=== PATIENT | male | born 1930 | race Caucasian/White ===

== ENCOUNTER 2016-10-31 14:57 | Inpatient (IN) | payer SELFPAY ==
[2016-10-31] MEDS: metroNIDAZOLE 500 MG Tab PO SCH (22:51)
[2016-10-31] MEDS: Ciprofloxacin 500 MG Tab PO SCH (22:51)
[2016-11-01] MEDS: metroNIDAZOLE 500 MG Tab PO SCH (05:45)
[2016-11-01] MEDS ORDERED: DEXLANSOPRAZOLE 60 MG PO SCH (08:00)
[2016-11-01] MEDS ORDERED: Valsartan 160 MG Tab PO SCH (08:00)
[2016-11-01] MEDS ORDERED: Olopatadine 0.1% Ophth Soln 5 ML Bottle EYEBOTH SCH ×2 (08:00→08:33)
[2016-11-01] MEDS ORDERED: TRAVOPROST EYEBOTH SCH ×2 (08:00→20:00)
[2016-11-01] MEDS ORDERED: atorvaSTATin 20 MG Tab PO SCH ×3 (08:00)
[2016-11-01] MEDS ORDERED: amLODIPine 5 MG Tab PO SCH (08:00)
[2016-11-01] MEDS ORDERED: Fish Oil/Omega-3 Fatty Acids 1 Gm Cap PO SCH ×2 (08:00→20:00)
[2016-11-01] MEDS ORDERED: Doxycycline 100 MG Cap PO SCH (08:00)
[2016-11-01] MEDS ORDERED: Metoprolol Succinate 25 MG Tab.ER PO SCH (08:00)
[2016-11-01] MEDS: Ciprofloxacin 500 MG Tab PO SCH (09:39)
[2016-11-01] MEDS ORDERED: Levothyroxine 50 MCG Tab PO SCH (09:45)
[2016-11-01] MEDS ORDERED: NATURAL TEARS EYEBOTH PRN (10:44)
[2016-11-01] MEDS ORDERED: guaiFENesin 600 MG Tab.ER PO SCH (10:45)
[2016-11-01 11:29] VITALS: BP 132/72
[2016-11-01] MEDS ORDERED: Albuterol/Ipratropium 3.0-0.5 MG/3 ML Neb Soln INH SCH (12:00)
[2016-11-01] MEDS ORDERED: Gabapentin 100 MG Cap PO SCH (14:00)
[2016-11-01] MEDS ORDERED: Omeprazole 20 MG Cap.CR PO SCH (20:00)
[2016-11-01] MEDS ORDERED: DEXILANT 60 MG PO SCH (20:00)
[2016-11-01] MEDS ORDERED: Sodium Chloride 0.65% Nasal Spray 45 ML Bottle NASBOTH SCH (20:00)
[2016-11-01] MEDS ORDERED: AMANTADINE 100MG CAPSULE PO SCH (20:00)
[2016-11-02] MEDS ORDERED: ATORVASTATIN PO SCH (08:00)
[2016-11-02] MEDS ORDERED: AMLODIPINE PO SCH (08:00)
[2016-11-02] MEDS ORDERED: Fluticasone Propionate Nasal Spray 16 GM Bottle NASBOTH SCH (08:00)
[2016-11-02] MEDS ORDERED: VITAMIN D3 PO SCH (08:00)
[2016-11-02] MEDS ORDERED: Aspirin 81 MG Tab.EC PO SCH (08:00)
[2016-11-02] MEDS ORDERED: Multivitamins with Iron/Calcium/Folic Acid/Minerals Tab PO SCH (08:00)
--- NOTE | 2016-11-03 13:26 | PCM.HP ---
H&P History of Present Illness - General Date of Service: 10/31/16 Admit Problem/Dx: Admission Diagnosis/Problem Admission Diagnosis/Problem Dementia Source of Information: Patient History Limitations: Reports: No limitations - History of Present Illness Initial Comments - Free Text/Narative: Pt is here for respite care for a day before he is going into Care center for admission. 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 He has had recurrent fall attacks all the time. he has had last episode of 10/29/16 in [place] and has a large scalp laceration with sutures on it. does not feel safe to take him home and hence has been admitted to hospital for respite care. No other acute health issues. - Related Data Allergies/Adverse Reactions: Allergies Allergy/AdvReac Type Severity Reaction Status Date / Time morphine Allergy Hallucinati Verified 03/06/15 17:23 ons Home Medications: Home Meds Doxycycline Monohydrate [Doxycycline Monohydrate] 1 tab PO DAILY 03/06/15 [ History] Metoprolol Succinate 25 mg PO DAILY 03/06/15 [History] Olopatadine [Patanol 0.1% Ophth Soln] 2 drop EYEBOTH QID 03/06/15 [History] [id number] Ethyl Esters [Lovaza] 1 tab PO BID 03/06/15 [History] Omeprazole [Omeprazole] 20 mg PO BID 03/06/15 [History] Travoprost [Travatan Z 0.004% Ophth Soln] 1 drop EYEBOTH BEDTIME 03/06/15 [ History] Valsartan [Valsartan] 160 mg PO DAILY 03/06/15 [History] amLODIPine/atorvaSTATin [Amlodipine-Atorvast 5-20 mg] 5 - 20 tab PO DAILY [History] Albuterol [Ventolin HFA] 1 puff INH Q4HR PRN 11/01/16 [History] Amantadine HCl [Amantadine] 100 mg PO BID 11/01/16 [History] Dextran 70/Hypromellose [Artificial Tears] 1 drop EYEBOTH Q2HR PRN 11/01/16 [ History] Fluticasone Propionate [Flovent] 1 puff IH BID 11/01/16 [History] Gabapentin [Neurontin] 200 mg PO TID 11/01/16 [History] Leuprolide Acetate [Lupron Depot] 45 mg IM ASDIRECTED 11/01/16 [History] Levothyroxine Sodium [Levo-T] 50 mcg PO DAILY 11/01/16 [History] Multivitamin [Multi-Vitamin Daily] 1 each PO DAILY 11/01/16 [History] Sodium Chloride [Deep Sea] 1 spray EDWARDO BID 11/01/16 [History] Tolterodine Tartrate 2 mg PO BID 11/01/16 [History] Zolpidem Tartrate [Ambien] 5 mg PO BEDTIME 11/01/16 [History] guaiFENesin [Mucinex] 600 mg PO BID 11/01/16 [History] Past Medical History HEENT History: Reports: Other (see below) Other HEENT History: DIZZINESS FOR SEVERAL YEARS, fx nose with fall Aug 2015, needs reading glasses but can't read anymore, 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 Cardiovascular History: Reports: High cholesterol, Hypertension Respiratory History: Reports: Other (see below) Other Respiratory History: SOB WITH CLIMBIMG STAIRS, 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, quit smoking 40 years ago, had a cough for awhile Gastrointestinal History: Reports: Chronic constipation, Chronic diarrhea, GERD , Other (see below) Other Gastrointestinal History: bowel problems with PSP patient currently has " colitis " and is receiving antibiotics Genitourinary History: Reports: Other (see below) Other Genitourinary History: HISTORY OF ELEVATED PSA, prostate cancer- getting shots at [place] every 6 months, horseshoe shaped kidney Musculoskeletal History: Reports: Fracture Other Musculoskeletal History: fx wrist from tipping over 4-[facility] 2013 Neurological History: Reports: Other (see below) Other Neuro History: Progressive supranuclear palsey (PSP) diagnosed May 2015- causing weakness, balance, vision, word finding per " some days he can't talk" and he has frequent falls last fall 10-27-2016 Psychiatric History: Reports: None Endocrine/Metabolic History: Reports: Other (see below) Other Endocrine/Metabolic History: thyroid problem Hematologic History: Reports: None Immunologic History: Reports: None Oncologic (Cancer) History: Reports: Prostate Dermatologic History: Reports: None - Past Surgical History HEENT Surgical History: Reports: Cataract surgery Cardiovascular Surgical History: Reports: Coronary artery bypass Other Cardiovascular Surgeries/Procedures: Respiratory Surgical History: Reports: None GI Surgical History: Reports: None Neurological Surgical History: Reports: C-Spine, Spinal fusion, Other (see below ) Other Neurological Surgeries/Procedures: C-SPINE FUSION IN S OF 5&6 Musculoskeletal Surgical History: Reports: Other (see below) Other Musculoskeletal Surgeries/Procedures:: C-SPINE FUSION IN OF 5&6 Social & Family History - Family History Family Medical History: Noncontributory - Tobacco Use Smoking Status *Q: Former Smoker Years of Tobacco use: 0 Packs/Tins Daily: 0 Used Tobacco, but Quit: Yes Month Tobacco Last Used: unknown Tobacco Use Comment: patient 's reports pt quit smoking in the "70's" she does not know how long he smoked Second Hand Smoke Exposure: No - Caffeine Use Caffeine Use: Reports: Coffee, Soda Other Caffeine Use: 1 cup daily - Recreational Drug Use Recreational Drug Use: No H&P Review of Systems - Review of Systems: Review Of Systems: Unable To Obtain (due to severe dementia) Exam - Exam Exam: See Below - Vital Signs Vital Signs: Last Vital Signs Temp 97 F 11/01/16 08:00 Pulse 72 11/01/16 11:26 Resp 16 11/01/16 08:00 BP 132/72 11/01/16 11:26 Pulse Ox 96 11/01/16 08:00 Weight: 80.739 kg - Exam General: alert, cooperative HEENT: PERRLA, Conjunctiva clear, EACs clear, EOMI, Hearing intact, Mucosa moist & pink, Nares patent, Normal nasal septum, Posterior pharynx clear, TMs clear, Other (loss of vertical gaze) Neck: supple, trachea midline, 2 Lungs: Clear to auscultation, Normal respiratory effort Cardiovascular: regular rate, regular rhythm Abdomen: normal bowel sounds, soft Back Exam: normal inspection, full range of motion, NT Extremities: normal inspection, other (there are bruises and abrasion in differnet level of healing over the extremities.) Skin: warm, intact, other (There is a sutured laceration over the right parietal region. healing well) Neuro Extensive - Mental Status: alert, oriented x3, disorientation to place, disorientation to time, inattentive Neuro Extensive - Motor, Sensory, Reflexes: abnormal gait *Q Meaningful Use (ADM) - VTE *Q VTE Criteria *Q: - Stroke *Q Stroke Criteria *Q: - AMI *Q AMI Criteria *Q: - Problem List (1) Dementia associated with other underlying disease Status: Acute Problem List Initiated/Reviewed/Updated: Yes Assessment/Plan Comment:: Assessment:Dementia with progressive supranuclear palsy Plan: at this poitn patient has been admitted for respite care for just one day , before getting admitted to the care center. He is clinically stable. is going to stay with him overnight. Will continue home meds. He has had sigmoid colitis for which he has been taking cipro and flagyl for 10 days. Closely monitor patient with fall precautions.
--- NOTE | 2016-11-03 13:37 | PCM.DCSUM1 ---
Discharge Summary - Hospital Course Free Text/Narrative:: Pt was admitted for respite care last night. Has had an uneventful night .Plan is to get him admitted to care center at [facility] today. Brief History: Pt has progressive supranuclear palsy and his has not been able to take care of him. he was admitted for respite care before getting him to care center. - Discharge Data Discharge Date: 11/02/16 Discharge Disposition: DC/Tfer to [facility] Condition: Fair - Discharge Diagnosis/Problem(s) (1) Dementia associated with other underlying disease Status: Acute - Patient Summary/Data Consults: Consultations 10/31/16 17:25 OT Evaluation and Treatment [CONS] Routine Please Evaluate and Treat. OT Reason for Consult: ADL's This query below is only for informational purposes and is not editable. PT Evaluation and Treatment [CONS] Routine Please Evaluate and Treat. PT Reason for Consult: Ambulation This query below is only for informational purposes and is not editable. - Patient Instructions Diet: Usual Diet as Tolerated Activity: As Tolerated - Discharge Plan Home Medications: Home Meds Doxycycline Monohydrate 1 tab PO DAILY 03/06/15 [History] Metoprolol Succinate 25 mg PO DAILY 03/06/15 [History] Olopatadine [Patanol 0.1% Ophth Soln] 2 drop EYEBOTH QID 03/06/15 [History] [id number] Ethyl Esters [Lovaza] 1 tab PO BID 03/06/15 [History] Omeprazole 20 mg PO BID 03/06/15 [History] Travoprost [Travatan Z 0.004% Ophth Soln] 1 drop EYEBOTH BEDTIME 03/06/15 [ History] Valsartan 160 mg PO DAILY 03/06/15 [History] amLODIPine/atorvaSTATin [Amlodipine-Atorvast 5-20 mg] 5 - 20 tab PO DAILY [History] Albuterol [Ventolin HFA] 1 puff INH Q4HR PRN 11/01/16 [History] Amantadine HCl [Amantadine] 100 mg PO BID 11/01/16 [History] Dextran 70/Hypromellose [Artificial Tears] 1 drop EYEBOTH Q2HR PRN 11/01/16 [ History] Fluticasone Propionate [Flovent] 1 puff IH BID 11/01/16 [History] Gabapentin [Neurontin] 200 mg PO TID 11/01/16 [History] Leuprolide Acetate [Lupron Depot] 45 mg IM ASDIRECTED 11/01/16 [History] Levothyroxine Sodium [Levo-T] 50 mcg PO DAILY 11/01/16 [History] Multivitamin [Multi-Vitamin Daily] 1 each PO DAILY 11/01/16 [History] Sodium Chloride [Deep Sea] 1 spray EDWARDO BID 11/01/16 [History] Tolterodine Tartrate 2 mg PO BID 11/01/16 [History] Zolpidem Tartrate [Ambien] 5 mg PO BEDTIME 11/01/16 [History] guaiFENesin [Mucinex] 600 mg PO BID 11/01/16 [History] - Discharge Summary/Plan Comment DC Time >30 min.: Yes Discharge Summary/Plan Comment: Plan is to discharge form respite care and admit patient to care center for group home care. - General Info Functional Status: Reports: tolerating diet, urinating - Review of Systems General: Denies: Fever, Weakness HEENT: Denies: sinus congestion, rhinitis Pulmonary: Denies: shortness of breath, wheezing Cardiovascular: Denies: Chest Pain, Lightheadedness Gastrointestinal: Denies: Abdominal pain, Nausea, Vomiting Genitourinary: Denies: dysuria, frequency Musculoskeletal: Denies: joint pain, joint swelling Skin: Denies: pruritis, rash Neurological: Reports: Pre-Existing Deficit - Patient Data Vitals - Most Recent: Last Vital Signs Temp 97 F 11/01/16 08:00 Pulse 72 11/01/16 11:26 Resp 16 11/01/16 08:00 BP 132/72 11/01/16 11:26 Pulse Ox 96 11/01/16 08:00 Weight - Most Recent: 80.739 kg Med Orders - Current: Current Medications Discontinued Medications Albuterol/Ipratropium (Duoneb 3.0-0.5 Mg/3 Ml) 3 ml INH QID [facility] Aspirin (Halfprin) 81 mg PO DAILY [facility] Ciprofloxacin (Ciprofloxacin Hcl) 500 mg PO BID [facility] Stop: 11/08/16 20:00 Last Admin: 11/01/16 09:39 Dose: 500 mg Doxycycline Hyclate (Vibramycin) 100 mg PO DAILY [facility] Last Admin: 11/01/16 11:27 Dose: 100 mg Fish Oil (Fish Oil) 1 gm PO DAILY [facility] Last Admin: 11/01/16 11:28 Dose: 1 gm Fish Oil (Fish Oil) 1 gm PO BID [facility] Fluticasone Propionate (Flonase) 0 - 1 gm NASBOTH BID [facility] Gabapentin (Neurontin) 200 mg PO TID [facility] Guaifenesin (Mucinex) 600 mg PO Q12H [facility] Levothyroxine Sodium (Synthroid) 50 mcg PO QD [facility] Last Admin: 11/01/16 11:27 Dose: 50 mcg Metoprolol Succinate (Toprol Xl) 25 mg PO DAILY [facility] Last Admin: 11/01/16 11:26 Dose: 25 mg Metronidazole (Flagyl) 500 mg PO Q8H [facility] Stop: 11/08/16 21:45 Last Admin: 11/01/16 05:45 Dose: 500 mg Multivitamins/Minerals (Thera M Plus) 1 tab PO DAILY [facility] Travoprost [Travatan Z 0.004% Ophth Soln Nonform 1 drop EYEBOTH DAILY [facility] Travoprost [Travatan Z 0.004% Ophth Soln Nonform 1 drop EYEBOTH BEDTIME [facility] Amantadine 100mg (Capsule) 1 each PO BID [facility] Vitamin D3 Capsules 1 each PO DAILY [facility] Natural Tears 0 - 1 each EYEBOTH ASDIRECTED PRN PRN Reason: DRY EYES Amlodopine/Atorvastatin 5-20mg Tabs 1 each PO DAILY [facility] Olopatadine HCl (Patanol 0.1% Ophth Soln) 0 ml EYEBOTH DAILY [facility] Olopatadine HCl (Patanol 0.1% Ophth Soln) 0 - 2 ml EYEBOTH DAILY [facility] Omeprazole (Omeprazole) 20 mg PO BID [facility] Sodium Chloride ([place] Nasal [place]) 0 - 1 ml NASBOTH BID [facility] Valsartan (Diovan) 160 mg PO DAILY [facility] Last Admin: 11/01/16 11:25 Dose: 160 mg - Exam General: Reports: alert, oriented HEENT: Reports: Pupils equal, Pupils reactive, EOMI, Mucous membr. moist/pink Neck: Reports: supple Lungs: Reports: Clear to auscultation, Normal respiratory effort Cardiovascular: Reports: Regular Rate, Regular Rhythm Abdomen: Reports: bowel sounds present, soft, no tenderness, no distension Extremities: Reports: no edema, normal pulses Skin: Reports: warm, intact, other (healing right scalp laceration) Neurological: Reports: no new focal deficit *Q Meaningful Use (DIS) - VTE *Q VTE Criteria *Q: - Stroke *Q Stroke Criteria *Q: - AMI *Q AMI Criteria *Q:
== END 2016-11-01 14:00 | DRG 884 ==
LOC: UNDOADMIN 15:37 → LB.MS 15:37
PROVIDERS: ADMIT Family Medicine; ATTEND Family Medicine
DX: F03.90 Unspecified dementia, unspecified severity, without behavioral disturbance, psychotic disturbance, mood disturbance, and anxiety (principal); Z75.5 Holiday relief care; Z66 Do not resuscitate
CPT/HCPCS: A9270-GY